=== PATIENT | male | born 1960 | race Two or more races ===

== ENCOUNTER 2025-02-23 07:38 | Outpatient (CLI) | payer MEDICAID ==
[~2025-02-23] VITALS: Ht 160 cm; Wt 83.9 kg
[2025-02-23] MEDS: REGADENOSON 0.4 MG/5 ML SYRG IV ONE ×2 (09:28)
--- NOTE | 2025-02-23 12:16 | DVHSR ---
APPROVED REPORT Exam: Nuclear Stress Test BMI: 0 Stress Test Details HR Max Heart Rate (APMHR): 158.521639 bpm Target HR (85% APMHR): 134.708871 bpm BP ECG Stress ECG Conclusion lvef 67% no severe ischemia noted NM EXAM: Myocardial Perfusion REST/STRESS Imaging Protocol: Rest Tc-99m/Stress Tc-99m 1 day Resting Data Rest SPECT myocardial perfusion imaging was performed in supine position 60 minutes following the intravenous injection of 10.2 mCi of Tc-99m Sestamibi. Time of rest injection: 0830 Time of rest imagin Administration Route: IV Administration Site: Right AC Pharmacologic Stress Pharmacologic stress test was performed by injecting Regadenoson 0.4 mg IV push followed by the intravenous injection of 30.5 mCi of Tc-99m Sestamibi. Time of stress injection: 0945 Time of stress imagin Administration Route: IV Administration Site: Right AC Gated Stress SPECT was performed 65 minutes after stress injection. The images were gated to evaluate regional wall motion and calculate left ventricular ejection fraction. Nuclear Conclusion Nuclear Findings: negative for ischemia lvef 67% no severe ischemia noted
== END 2025-02-23 17:00 | disposition home or self-care (01) ==
LOC: XYW 07:38
PROVIDERS: ATTEND Specialist
DX: I25.10 Atherosclerotic heart disease of native coronary artery without angina pectoris (principal); I10 Essential (primary) hypertension; Z86.73 Personal history of transient ischemic attack (TIA), and cerebral infarction without residual deficits
CPT/HCPCS: 78452; 93017; A9500; J2785